=== PATIENT | male | born 2000 | race Caucasian/White ===

== ENCOUNTER 2025-02-08 20:11 | Emergency (ER) | payer SELFPAY ==
[~2025-02-08] VITALS: Ht 170.2 cm; Wt 101.3 kg
[2025-02-08 20:44] VITALS: O2SAT 100
[2025-02-08] MEDS ORDERED: IBUP-2028 MT (21:58)
[2025-02-08 22:35] VITALS: BP 115/79; PULSE 81; RESP 16; TEMP 37.2; O2SAT 99
== END 2025-02-08 22:40 | disposition home or self-care (01) ==
LOC: ER 20:11
DX: S90.30XA Contusion of unspecified foot, initial encounter (principal); W18.39XA Other fall on same level, initial encounter; Y93.89 Activity, other specified; Y92.89 Other specified places as the place of occurrence of the external cause; Y99.8 Other external cause status
CPT/HCPCS: 73590; 73600; 99284